=== PATIENT | female | born 1985 | race Caucasian/White ===

== ENCOUNTER 2017-06-28 18:27 | Emergency (ER) | payer BC ==
[2017-06-28 18:40] VITALS: RESP 18
[2017-06-28] MEDS ORDERED: ONDANSETRON 4 MG/2 ML VIAL IVP STA (19:27)
[2017-06-28] MEDS ORDERED: SODIUM CHLORIDE 0.9% 1,000 ML IV STA (19:27)
[2017-06-28] MEDS ORDERED: DICYCLOMINE 10 MG/ML 2 ML AMP IM STA (19:27)
[2017-06-28] MEDS ORDERED: SODIUM CHLORIDE 0.9% 500 ML IV STA (19:27)
--- NOTE | 2017-06-28 19:27 | ED ---
Nausea/Vomiting/Diarrhea HPI - General Chief complaint: Nausea/Vomiting/Diarrhea Stated complaint: Vomiting Time Seen by Provider: 06/28/17 19:08 Source: patient Mode of arrival: ambulatory Limitations: no limitations - History of Present Illness Initial comments: 32-year-old female patient presents to the emergency department today for complaints of vomiting and diarrhea. Patient states that symptoms started around 0830 this morning. States that she has vomited approximately 5 times. States that she's had multiple episodes of watery diarrhea. She denies any hematemesis, hematochezia, or melena. Denies any fevers or chills. Patient states that her was sick with similar symptoms approximately 3 days ago. Patient states she has been having generalized abdominal cramping. States that she has attempted to eat crackers and drink water however she vomits almost immediately whenever she tries. She denies any recent travel or ingestion of questionable foods. Patient denies any recent rash, shortness breath, chest pain, back pain, numbness, tingling, dizziness, weakness, hematuria, dysuria, urinary urgency, urinary frequency, headache, visual changes , or any other complaints. - Related Data Home Medications Medication Instructions Recorded Confirmed metFORMIN HCL [Glucophage] 500 mg PO BID 06/28/17 06/28/17 Previous Rx's Medication Instructions Recorded Ondansetron [Zofran ODT] 4 mg PO Q8HR PRN #10 tab 06/28/17 Allergies Allergy/AdvReac Type Severity Reaction Status Date / Time No Known Allergies Allergy Verified 06/28/17 19:18 Review of Systems ROS Statement: Those systems with pertinent positive or pertinent negative responses have been documented in the HPI. ROS Other: All systems not noted in ROS Statement are negative. Past Medical History Past Medical History: No Reported History History of Any Multi-Drug Resistant Organisms: None Reported Past Surgical History: No Surgical Hx Reported Past Psychological History: No Psychological Hx Reported Smoking Status: Never smoker Past Alcohol Use History: Occasional Past Drug Use History: None Reported General Exam Limitations: no limitations General appearance: alert, in no apparent distress, other (This is a well- developed, well-nourished adult female patient in no acute distress. Vital signs upon presentation are temperature 99.0F, pulse 106, respirations 18, blood pressure 142/89, pulse ox 99% on room air.) Eye exam: Present: normal appearance, PERRL, EOMI. Absent: scleral icterus, conjunctival injection, periorbital swelling ENT exam: Present: normal exam, normal oropharynx, mucous membranes moist Respiratory exam: Present: normal lung sounds bilaterally. Absent: respiratory distress, wheezes, rales, rhonchi, stridor Cardiovascular Exam: Present: regular rate, normal rhythm, normal heart sounds. Absent: systolic murmur, diastolic murmur, rubs, gallop, clicks GI/Abdominal exam: Present: soft, normal bowel sounds. Absent: distended, tenderness, guarding, rebound, rigid Neurological exam: Present: alert, oriented X3, CN II-XII intact Psychiatric exam: Present: normal affect, normal mood Skin exam: Present: warm, dry, intact, normal color. Absent: rash Course Vital Signs 06/28/17 06/28/17 18:38 21:11 Temperature 99 F Pulse Rate 106 H 95 Respiratory 18 18 Rate Blood Pressure 142/89 121/57 O2 Sat by Pulse 99 98 Oximetry Medical Decision Making - Medical Decision Making 32-year-old female patient presents to the emergency department today with complaints of vomiting and diarrhea since 8:30 this morning. Physical examination was relatively unremarkable. Abdomen was soft and nontender. Labs reviewed and did reveal an elevated white blood cell count at 13.9, neutrophil count at 12.6. Urinalysis was negative for any infectious process however did reveal 2+ ketones. Patient was negative on her urine hCG. Patient is feeling much better after receiving IV fluids, Zofran, and IM Bentyl. I did discuss results with the patient and informed her symptoms are most likely related to a gastroenteritis. She is instructed to start with a clear liquid diet and advance as tolerated. She'll be given a prescription of Zofran for any continued symptoms. She is instructed to follow-up with her primary care physician for recheck in 1-2 days. She is instructed to return here immediately for any new, worsening, or concerning symptoms. She'll verbalize understanding and agree with this plan. - Lab Data Result diagrams: 06/28/17 20:15 06/28/17 20:15 Lab Results 06/28/17 06/28/17 06/28/17 Range/Units 20:15 20:15 21:10 WBC 13.9 H (3.8-10.6) k/uL RBC 5.37 (3.80-5.40) m/uL Hgb 14.8 (11.4-16.0) gm/dL Hct 46.9 H (34.0-46.0) % MCV 87.3 (80.0-100.0) fL MCH 27.6 (25.0-35.0) pg MCHC 31.6 (31.0-37.0) g/dL RDW 14.1 (11.5-15.5) % Plt Count 303 (150-450) k/uL Neutrophils % 90 % Lymphocytes % 5 % Monocytes % 4 % Eosinophils % 1 % Basophils % 0 % Neutrophils # 12.6 H (1.3-7.7) k/uL Lymphocytes # 0.7 L (1.0-4.8) k/uL Monocytes # 0.5 (0-1.0) k/uL Eosinophils # 0.1 (0-0.7) k/uL Basophils # 0.0 (0-0.2) k/uL Sodium 142 (137-145) mmol/L Potassium 4.0 (3.5-5.1) mmol/L Chloride 104 (98-107) mmol/L Carbon Dioxide 20 L (22-30) mmol/L Anion Gap 18 mmol/L BUN 14 (7-17) mg/dL Creatinine 0.70 (0.52-1.04) mg/dL Est GFR (CKD-EPI)AfAm >90 (>60 ml/min/1.73 sqM) Est GFR (CKD-EPI)NonAf >90 (>60 ml/min/1.73 sqM) Glucose 100 H (74-99) mg/dL Calcium 9.7 (8.4-10.2) mg/dL Total Bilirubin 0.9 (0.2-1.3) mg/dL AST 16 (14-36) U/L ALT 18 (9-52) U/L Alkaline Phosphatase 91 (38-126) U/L Total Protein 8.6 H (6.3-8.2) g/dL Albumin 4.8 (3.5-5.0) g/dL Amylase 50 (30-110) U/L Lipase 40 (23-300) U/L Urine Color Yellow Urine Appearance Clear (Clear) Urine pH 5.5 (5.0-8.0) Ur Specific [place] 1.028 (1.001-1.035) Urine Protein Trace H (Negative) Urine Glucose (UA) Negative (Negative) Urine Ketones 2+ H (Negative) Urine Blood Small H (Negative) Urine Nitrite Negative (Negative) Urine Bilirubin Negative (Negative) Urine Urobilinogen <2.0 (<2.0) mg/dL Ur Leukocyte Esterase Negative (Negative) Urine RBC 3 (0-5) /hpf Urine WBC 2 (0-5) /hpf Ur Squamous Epith Cells 3 (0-4) /hpf Urine Bacteria Rare H (None) /hpf Urine Mucus Many H (None) /hpf Urine HCG, Qual (Not Detectd) 06/28/17 Range/Units 21:10 WBC (3.8-10.6) k/uL RBC (3.80-5.40) m/uL Hgb (11.4-16.0) gm/dL Hct (34.0-46.0) % MCV (80.0-100.0) fL MCH (25.0-35.0) pg MCHC (31.0-37.0) g/dL RDW (11.5-15.5) % Plt Count (150-450) k/uL Neutrophils % % Lymphocytes % % Monocytes % % Eosinophils % % Basophils % % Neutrophils # (1.3-7.7) k/uL Lymphocytes # (1.0-4.8) k/uL Monocytes # (0-1.0) k/uL Eosinophils # (0-0.7) k/uL Basophils # (0-0.2) k/uL Sodium (137-145) mmol/L Potassium (3.5-5.1) mmol/L Chloride (98-107) mmol/L Carbon Dioxide (22-30) mmol/L Anion Gap mmol/L BUN (7-17) mg/dL Creatinine (0.52-1.04) mg/dL Est GFR (CKD-EPI)AfAm (>60 ml/min/1.73 sqM) Est GFR (CKD-EPI)NonAf (>60 ml/min/1.73 sqM) Glucose (74-99) mg/dL Calcium (8.4-10.2) mg/dL Total Bilirubin (0.2-1.3) mg/dL AST (14-36) U/L ALT (9-52) U/L Alkaline Phosphatase (38-126) U/L Total Protein (6.3-8.2) g/dL Albumin (3.5-5.0) g/dL Amylase (30-110) U/L Lipase (23-300) U/L Urine Color Urine Appearance (Clear) Urine pH (5.0-8.0) Ur Specific [place] (1.001-1.035) Urine Protein (Negative) Urine Glucose (UA) (Negative) Urine Ketones (Negative) Urine Blood (Negative) Urine Nitrite (Negative) Urine Bilirubin (Negative) Urine Urobilinogen (<2.0) mg/dL Ur Leukocyte Esterase (Negative) Urine RBC (0-5) /hpf Urine WBC (0-5) /hpf Ur Squamous Epith Cells (0-4) /hpf Urine Bacteria (None) /hpf Urine Mucus (None) /hpf Urine HCG, Qual Not Detected (Not Detectd) Disposition Clinical Impression: Gastroenteritis Disposition: HOME SELF-CARE Condition: Good Instructions: Gastroenteritis (ED) Additional Instructions: Start with clear liquid diet and advance as tolerated. Follow-up with your primary care physician for recheck in 1-2 days. Return here immediately for any new, worsening, or concerning symptoms. Prescriptions: Ondansetron [Zofran ODT] 4 mg PO Q8HR PRN #10 tab PRN Reason: Nausea Referrals: None,Stated [Primary Care Provider] - 1-2 days Time of Disposition: 21:51
[2017-06-28 20:34] LABS: Basophils % (A) 0 %; Eosinophils # (A) 0.1 k/uL (0-0.7); Eosinophils % (A) 1 %; HCT 46.9 % (34.0-46.0); HGB 14.8 gm/dL (11.4-16.0); Lymphocytes # (A) 0.7 k/uL (1.0-4.8); Lymphocytes % (A) 5 %; MCH 27.6 pg (25.0-35.0); MCHC 31.6 g/dL (31.0-37.0); MCV 87.3 fL (80.0-100.0); Mean Platelet Volume 7.3; Monocytes # (A) 0.5 k/uL (0-1.0); Monocytes % (A) 4 %; Neutrophils # (A) 12.6 k/uL (1.3-7.7); Neutrophils % (A) 90 %; Platelet Count 303 k/uL (150-450); RBC 5.37 m/uL (3.80-5.40); RDW 14.1 % (11.5-15.5); WBC 13.9 k/uL (3.8-10.6)
[2017-06-28 20:40] LABS: ALT 18 U/L (9-52); AST 16 U/L (14-36); Albumin 4.8 g/dL (3.5-5.0); Alkaline Phosphatase 91 U/L (38-126); Amylase 50 U/L (30-110); Anion Gap 18 mmol/L; Blood Urea Nitrogen 14 mg/dL (7-17); Calcium 9.7 mg/dL (8.4-10.2); Carbon Dioxide 20 mmol/L (22-30); Chloride 104 mmol/L (98-107); Glucose 100 mg/dL (74-99); Lipase 40 U/L (23-300); Sodium 142 mmol/L (137-145); Total Bilirubin 0.9 mg/dL (0.2-1.3); Total Protein 8.6 g/dL (6.3-8.2)
[2017-06-28 21:30] LABS: Appearance,Urine Clear (Clear); Bacteria,Urine Rare /hpf; Bilirubin,Urine Negative (Negative); Blood,Urine Small (Negative); Color,Urine Yellow; Glucose,Urine (UA) Negative (Negative); Ketones,Urine 2+ (Negative); Leukocyte Esterase,Urine Negative (Negative); Mucus,Urine Many /hpf; Nitrite,Urine Negative (Negative); PH, Urine 5.5 (5.0-8.0); Protein,Urine Trace (Negative); RBC,Urine 3 /hpf (0-5); Specific Gravity,Urine 1.028 (1.001-1.035); Squamous Epithelial Cell,Urine 3 /hpf (0-4); Urobilinogen,Urine <2.0 mg/dL (<2.0); WBC,Urine 2 /hpf (0-5)
[2017-06-28 22:25] VITALS: BP 112/58; PULSE 91
[2017-06-28 22:26] VITALS: TEMP 98.7
== END 2017-06-28 22:38 | disposition home or self-care (01) ==
LOC: EC 18:27
DX: K52.9 Noninfective gastroenteritis and colitis, unspecified (principal); Z79.84 Long term (current) use of oral hypoglycemic drugs
CPT/HCPCS: 99284; 96374; 96361 ×2; 96372; 36415; 80053; 82150; 83690; 85025; 81001; 81025; J0500; J2405

== ENCOUNTER 2022-04-25 00:23 | Inpatient (IN) | payer BC ==
[2022-04-25] MEDS ORDERED: KETOROLAC 15 MG/ML 1 ML VIAL IVP STA (00:45)
[2022-04-25] MEDS ORDERED: SODIUM CHLORIDE 0.9% 1,000 ML IV STA (00:45)
[2022-04-25] MEDS ORDERED: MORPHINE SULFATE 2 MG/ML SYRINGE IVP STA (00:45)
[2022-04-25] MEDS ORDERED: HYDROmorphone 0.5 MG/0.5 ML SYRINGE IM STA (00:48)
[2022-04-25 01:16] LABS: Basophils # (A) 0.1 k/uL (0-0.2); Basophils % (A) 1 %; Eosinophils # (A) 0.1 k/uL (0-0.7); Eosinophils % (A) 1 %; HCT 37.4 % (34.0-46.0); HGB 12.2 gm/dL (11.4-16.0); Lymphocytes # (A) 2.4 k/uL (1.0-4.8); Lymphocytes % (A) 23 %; MCH 28.9 pg (25.0-35.0); MCHC 32.7 g/dL (31.0-37.0); MCV 88.3 fL (80.0-100.0); Mean Platelet Volume 7.3; Monocytes # (A) 0.5 k/uL (0-1.0); Monocytes % (A) 5 %; Neutrophils # (A) 7.3 k/uL (1.3-7.7); Neutrophils % (A) 70 %; Platelet Count 355 k/uL (150-450); RBC 4.24 m/uL (3.80-5.40); RDW 15.3 % (11.5-15.5); WBC 10.6 k/uL (3.8-10.6)
[2022-04-25 01:36] LABS: ALT 19 U/L (4-34); AST 20 U/L (14-36); African American GFR (CKD) >90 (>60 ml/min/1.73 sqM); Albumin 4.5 g/dL (3.5-5.0); Alkaline Phosphatase 75 U/L (38-126); Anion Gap 12 mmol/L; Blood Urea Nitrogen 11 mg/dL (7-17); Calcium 9.3 mg/dL (8.4-10.2); Carbon Dioxide 20 mmol/L (22-30); Chloride 110 mmol/L (98-107); Glucose 115 mg/dL (74-99); Non-African American GFR(CKD) >90 (>60 ml/min/1.73 sqM); Potassium 3.8 mmol/L (3.5-5.1); Sodium 142 mmol/L (137-145); Total Bilirubin 0.4 mg/dL (0.2-1.3); Total Protein 7.8 g/dL (6.3-8.2)
--- NOTE | 2022-04-25 01:51 | US ---
EXAMINATION TYPE: US pelvis complete transvag DATE OF EXAM: 04/25/2022 COMPARISON: NONE CLINICAL HISTORY: Pelvic pain. pelvic pain with bleeding since early March, , patient in extre me pain tonight TECHNIQUE: TA/TV. Transabdominal sonographic images of the pelvis were acquired. Transvaginal sono graphic images were medically necessary to better assess the following anatomy: everything patient had to have pain medication before TV was attempted. Date of LMP: unknown EXAM MEASUREMENTS: Uterus: 8.2 x 4.7 x 3.8 cm Endometrial Stripe: 0.9 cm Right Ovary: not seen Left Ovary: not seen 1. Uterus: Anteverted wnl 2. Endometrium: wnl 3. Right Ovary: unable to view normal ovarian tissue with and without TV approach 4. Left Ovary: unable to view normal ovarian tissue with and without TV approach 5. Bilateral Adnexa: wnl 6. Posterior cul-de-sac: soft tissue area seen within cul-de-sac that may represent clot versus othe r etiology Anterior to uterus and slightly left of midline is complex mass measuring 9.3 x 6.9 x 7.5cm, no vas cularity, cannot exclude this is a torsed ovary. Tired multiple attempt to visualize normal ovarian t issue, never obtain ovaries. IMPRESSION: There is large mass in the pelvis on the left side of uncertain origin and significance. This could b e large hemorrhagic ovarian cyst or ovarian tumor. Follow-up is recommended. Echogenicity in the cul- de-sac could be some blood clot.
--- NOTE | 2022-04-25 02:29 | ED ---
Abdominal Pain HPI - General Chief Complaint: Abdominal Pain Stated Complaint: Abdominal pain Time Seen by Provider: 04/25/22 00:34 Source: patient, family, RN notes reviewed Mode of arrival: ambulatory Limitations: no limitations - History of Present Illness Initial Comments: This is a 36-year-old female who presents to the emergency department for pelvic pain. States that at approximately 10 PM, she developed sudden onset pelvic pain, she describes this as feeling almost like a "nerve pain" or stabbing pain in the vagina. Additionally, she reports ongoing vaginal bleeding for the last 2 months with varying intensity. Denies any history of problems with ongoing vaginal bleeding or severe pain like she is currently experiencing. She has seen Dr. Talavera in the past and has her next appointment scheduled for next month. She feels nauseous due to the pain, but denies any episodes of vomiting. About a week ago, she had lower abdominal pain, however this was higher up in the abdomen and resolved after a bowel movement and Tums. States that this pain feels much different overall. Denies any fevers, chills, sore throat, cough, dyspnea, chest pain, palpitations, vomiting, diarrhea, back pain, or headaches. MD Complaint: abdominal pain - Related Data Allergies Allergy/AdvReac Type Severity Reaction Status Date / Time No Known Allergies Allergy Verified 06/28/17 19:18 Review of Systems ROS Statement: Those systems with pertinent positive or pertinent negative responses have been documented in the HPI. ROS Other: All systems not noted in ROS Statement are negative. Past Medical History Past Medical History: No Reported History History of Any Multi-Drug Resistant Organisms: None Reported Past Surgical History: No Surgical Hx Reported Past Psychological History: No Psychological Hx Reported Past Alcohol Use History: Occasional Past Drug Use History: None Reported - Past Family History Mother Family Medical History: Cancer (Breast) General Exam Limitations: no limitations General appearance: alert, in distress Head exam: Present: atraumatic, normocephalic, normal inspection Respiratory exam: Present: normal lung sounds bilaterally. Absent: respiratory distress, wheezes, rales, rhonchi, stridor Cardiovascular Exam: Present: regular rate, normal rhythm, normal heart sounds. Absent: systolic murmur, diastolic murmur, rubs, gallop, clicks GI/Abdominal exam: Present: soft, tenderness (There is tenderness to palpation over the whole pelvic area, worse in the suprapubic region.). Absent: distended Neurological exam: Present: alert, oriented X3, CN II-XII intact Psychiatric exam: Present: normal affect, normal mood Skin exam: Present: warm, dry, intact, normal color. Absent: rash Course Vital Signs 04/25/22 04/25/22 00:26 01:40 Temperature 97.5 F L Pulse Rate 111 H 95 Respiratory 20 16 Rate Blood Pressure 142/82 142/86 O2 Sat by Pulse 100 97 Oximetry Medical Decision Making - Medical Decision Making This is a 36-year-old female who presents to the emergency department for abdominal pain. Was pt. sent in by a medical professional or institution? @ -No Did you speak to anyone other than the patient for history? @ -Her Did you review nursing and triage notes? @ -Yes, and I agree, it is accurate with regards to the patient's symptoms. Were old charts reviewed? @ -No Differential Diagnosis? @ -Differential Abdominal Pain Women: Appendicitis, Cholecystitis, diverticulosis, ischemic bowel, pancreatitis, hepatitis, UTI, gastroenteritis, AAA, incarcerated hernia, bowel obstruction, constipation, inflammatory bowel, hepatitis, peptic ulcer disease, splenic i nfarction, perforated viscus, vulvitis, ovarian torsion, PID, kidney stone, placenta abruption, this is not meant to be an all-inclusive list What testing was considered but not performed? (CT, X-rays, U/S, labs)? Why? @ -None What meds were considered but not given? Why? @ -None Did you discuss the management of the patient with other professionals? @ -Yes, I first spoke with Dr. Max due to the patient stating that she had been a patient of Dr. Talavera. Dr. Max notes that the patient had not been seen in the office in over 5 years and was no longer considered their p atient. 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 Bey was then consulted, who came to evaluate the patient. Plans made for emergent surgical intervention. Did you reconcile home meds? @ -No Was smoking cessation discussed for >3mins.? @ -No Was critical care preformed (if so, how long)? @ -No Were there social determinants of health that impacted care today? How? (Homelessness, low income, unemployed, alcoholism, drug addiction, transportation, low edu. Level, literacy, decrease access to med. care, fci, rehab)? @ -No Was there de-escalation of care discussed even if they declined? (Discuss DNR or withdrawal of care, Hospice)? @ -No What co-morbidities impacted this encounter? (DM, HTN, Smoking, COPD, CAD, Cancer, CVA, Hep., AIDS, mental health diagnosis, sleep apnea, morbid obesity)? @ -Morbid obesity Was patient admitted / discharged? @ -Admitted. Lab work obtained and found to be nonactionable. Transvaginal ultrasound reveals a concerning left pelvic cystic structure measuring over 9 cm. Ovarian tissue was not visualized and this mass was concerning for a hemorrhagic cyst, ovarian tumor, or ovarian torsion. Patient's test did return as positive, however hCG was just above 300. Dr. Bey, [employer], made plans for emergent surgical intervention for left ovarian mass. Admission orders completed and the patient was taken to the OR. Undiagnosed new problem with uncertain prognosis? @ -Ovarian mass Drug Therapy requiring intensive monitoring for toxicity (Heparin, Nitro, Insulin, Cardizem)? @ -None Were any procedures done? @ -None Diagnosis/symptom? @ -Ovarian mass Acute, or Chronic, or Acute on Chronic? @ -Acute Uncomplicated (without systemic symptoms) or Complicated (systemic symptoms)? @ -Complicated Side effects of treatment? @ -Treatment not administered in the emergency department. Exacerbation, Progression, or Severe Exacerbation] @ -Not applicable Poses a threat to life or bodily function? @ -Yes This case was discussed in detail with the attending ED physician, Dr. Echols. Presentation, findings, and treatment plan discussed in detail as well. - Lab Data Result diagrams: 04/25/22 01:10 04/25/22 01:10 Lab Results 04/25/22 04/25/22 04/25/22 Range/Units 01:10 01:10 01:10 WBC 10.6 (3.8-10.6) k/uL RBC 4.24 (3.80-5.40) m/uL Hgb 12.2 (11.4-16.0) gm/dL Hct 37.4 (34.0-46.0) % MCV 88.3 (80.0-100.0) fL MCH 28.9 (25.0-35.0) pg MCHC 32.7 (31.0-37.0) g/dL RDW 15.3 (11.5-15.5) % Plt Count 355 (150-450) k/uL MPV 7.3 Neutrophils % 70 % Lymphocytes % 23 % Monocytes % 5 % Eosinophils % 1 % Basophils % 1 % Neutrophils # 7.3 (1.3-7.7) k/uL Lymphocytes # 2.4 (1.0-4.8) k/uL Monocytes # 0.5 (0-1.0) k/uL Eosinophils # 0.1 (0-0.7) k/uL Basophils # 0.1 (0-0.2) k/uL Sodium 142 (137-145) mmol/L Potassium 3.8 (3.5-5.1) mmol/L Chloride 110 H (98-107) mmol/L Carbon Dioxide 20 L (22-30) mmol/L Anion Gap 12 mmol/L BUN 11 (7-17) mg/dL Creatinine 0.63 (0.52-1.04) mg/dL Est GFR (CKD-EPI)AfAm >90 (>60 ml/min/1.73 sqM) Est GFR (CKD-EPI)NonAf >90 (>60 ml/min/1.73 sqM) Glucose 115 H (74-99) mg/dL Plasma Lactic Acid Matthew 1.3 (0.7-2.0) mmol/L Calcium 9.3 (8.4-10.2) mg/dL Total Bilirubin 0.4 (0.2-1.3) mg/dL AST 20 (14-36) U/L ALT 19 (4-34) U/L Alkaline Phosphatase 75 (38-126) U/L Total Protein 7.8 (6.3-8.2) g/dL Albumin 4.5 (3.5-5.0) g/dL HCG, Quant mIU/mL Urine Color Urine Appearance (Clear) Urine pH (5.0-8.0) Ur Specific [place] (1.001-1.035) Urine Protein (Negative) Urine Glucose (UA) (Negative) Urine Ketones (Negative) Urine Blood (Negative) Urine Nitrite (Negative) Urine Bilirubin (Negative) Urine Urobilinogen (<2.0) mg/dL Ur Leukocyte Esterase (Negative) Urine RBC (0-5) /hpf Urine WBC (0-5) /hpf Ur Squamous Epith Cells (0-4) /hpf Urine Mucus (None) /hpf Urine HCG, Qual (Not Detectd) Blood Type Blood Type Recheck Bld Type Recheck Status 04/25/22 04/25/22 04/25/22 Range/Units 01:10 02:28 02:28 WBC (3.8-10.6) k/uL RBC (3.80-5.40) m/uL Hgb (11.4-16.0) gm/dL Hct (34.0-46.0) % MCV (80.0-100.0) fL MCH (25.0-35.0) pg MCHC (31.0-37.0) g/dL RDW (11.5-15.5) % Plt Count (150-450) k/uL MPV Neutrophils % % Lymphocytes % % Monocytes % % Eosinophils % % Basophils % % Neutrophils # (1.3-7.7) k/uL Lymphocytes # (1.0-4.8) k/uL Monocytes # (0-1.0) k/uL Eosinophils # (0-0.7) k/uL Basophils # (0-0.2) k/uL Sodium (137-145) mmol/L Potassium (3.5-5.1) mmol/L Chloride (98-107) mmol/L Carbon Dioxide (22-30) mmol/L Anion Gap mmol/L BUN (7-17) mg/dL Creatinine (0.52-1.04) mg/dL Est GFR (CKD-EPI)AfAm (>60 ml/min/1.73 sqM) Est GFR (CKD-EPI)NonAf (>60 ml/min/1.73 sqM) Glucose (74-99) mg/dL Plasma Lactic Acid Matthew (0.7-2.0) mmol/L Calcium (8.4-10.2) mg/dL Total Bilirubin (0.2-1.3) mg/dL AST (14-36) U/L ALT (4-34) U/L Alkaline Phosphatase (38-126) U/L Total Protein (6.3-8.2) g/dL Albumin (3.5-5.0) g/dL HCG, Quant 347.6 mIU/mL Urine Color Yellow Urine Appearance Clear (Clear) Urine pH 5.5 (5.0-8.0) Ur Specific [place] 1.021 (1.001-1.035) Urine Protein Negative (Negative) Urine Glucose (UA) Negative (Negative) Urine Ketones Negative (Negative) Urine Blood Small H (Negative) Urine Nitrite Negative (Negative) Urine Bilirubin Negative (Negative) Urine Urobilinogen <2.0 (<2.0) mg/dL Ur Leukocyte Esterase Negative (Negative) Urine RBC <1 (0-5) /hpf Urine WBC 2 (0-5) /hpf Ur Squamous Epith Cells <1 (0-4) /hpf Urine Mucus Few H (None) /hpf Urine HCG, Qual Detected (Not Detectd) Blood Type Blood Type Recheck Bld Type Recheck Status 04/25/22 Range/Units 03:00 WBC (3.8-10.6) k/uL RBC (3.80-5.40) m/uL Hgb (11.4-16.0) gm/dL Hct (34.0-46.0) % MCV (80.0-100.0) fL MCH (25.0-35.0) pg MCHC (31.0-37.0) g/dL RDW (11.5-15.5) % Plt Count (150-450) k/uL MPV Neutrophils % % Lymphocytes % % Monocytes % % Eosinophils % % Basophils % % Neutrophils # (1.3-7.7) k/uL Lymphocytes # (1.0-4.8) k/uL Monocytes # (0-1.0) k/uL Eosinophils # (0-0.7) k/uL Basophils # (0-0.2) k/uL Sodium (137-145) mmol/L Potassium (3.5-5.1) mmol/L Chloride (98-107) mmol/L Carbon Dioxide (22-30) mmol/L Anion Gap mmol/L BUN (7-17) mg/dL Creatinine (0.52-1.04) mg/dL Est GFR (CKD-EPI)AfAm (>60 ml/min/1.73 sqM) Est GFR (CKD-EPI)NonAf (>60 ml/min/1.73 sqM) Glucose (74-99) mg/dL Plasma Lactic Acid Matthew (0.7-2.0) mmol/L Calcium (8.4-10.2) mg/dL Total Bilirubin (0.2-1.3) mg/dL AST (14-36) U/L ALT (4-34) U/L Alkaline Phosphatase (38-126) U/L Total Protein (6.3-8.2) g/dL Albumin (3.5-5.0) g/dL HCG, Quant mIU/mL Urine Color Urine Appearance (Clear) Urine pH (5.0-8.0) Ur Specific [place] (1.001-1.035) Urine Protein (Negative) Urine Glucose (UA) (Negative) Urine Ketones (Negative) Urine Blood (Negative) Urine Nitrite (Negative) Urine Bilirubin (Negative) Urine Urobilinogen (<2.0) mg/dL Ur Leukocyte Esterase (Negative) Urine RBC (0-5) /hpf Urine WBC (0-5) /hpf Ur Squamous Epith Cells (0-4) /hpf Urine Mucus (None) /hpf Urine HCG, Qual (Not Detectd) Blood Type O Positive Blood Type Recheck No Previous Record Bld Type Recheck Status [facility] ONLY - Radiology Data Radiology results: report reviewed, image reviewed Disposition Clinical Impression: Ovarian mass, left Disposition: ADMITTED IP TO THIS [facility] Referrals: None,Stated [Primary Care Provider] - 1-2 days
[2022-04-25 02:53] LABS: Appearance,Urine Clear (Clear); Bilirubin,Urine Negative (Negative); Blood,Urine Small (Negative); Color,Urine Yellow; Glucose,Urine (UA) Negative (Negative); Ketones,Urine Negative (Negative); Leukocyte Esterase,Urine Negative (Negative); Mucus,Urine Few /hpf; Nitrite,Urine Negative (Negative); PH, Urine 5.5 (5.0-8.0); Protein,Urine Negative (Negative); RBC,Urine <1 /hpf (0-5); Specific Gravity,Urine 1.021 (1.001-1.035); Squamous Epithelial Cell,Urine <1 /hpf (0-4); Urobilinogen,Urine <2.0 mg/dL (<2.0); WBC,Urine 2 /hpf (0-5)
--- NOTE | 2022-04-25 04:22 | P.HPOB ---
History of Present Illness H&P Date: 04/25/22 Chief Complaint: Acute abdominal pain This is a 36-year-old female 2 para 0110 with a last menstrual period in early February who came in with acute abdominal pain that woke her up from sleeping. It started in the midline lower abdomen and was very severe. She denied any nausea or vomiting but did feel some rectal pressure like she had to have a bowel movement. She stated she was wearing a tampon since she has been bleeding off and on since March 03. She took her tampon out and the pain did not get any better. Upon arrival to ER, she was given morphine and Dilaudid to control her pain. Pelvic ultrasound showed endometrial thickness of 0.9 cm. There was a question of clot in the cul-de-sac and a large left adnexal mass anterior and superior to the uterus measuring 9.3 x 6.9 x 7.5 cm with no vascularity. No normal ovarian tissue was seen on either ovary. 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 Patient is a past patient of Dr. Amato and did have an appointment scheduled to see her on 05/04/2022. Her last Pap was approximately 5 years ago. She denies any history of sexual transmitted diseases. She did not know she was until she came to the emergency room. She states her last intercourse was sometime in February. Obstetrical history: 110. She does have a history of a stillborn at approximately 25-1/2 weeks 14 years ago. Review of Systems Constitutional: Denies chills, Denies fever Eyes: denies blurred vision, denies pain Ears, nose, mouth and throat: Denies headache, Denies sore throat Cardiovascular: Denies chest pain, Denies shortness of breath Respiratory: Denies cough Gastrointestinal: Reports abdominal pain, Reports diarrhea, Denies nausea, Denies vomiting Genitourinary: Reports abnormal vaginal bleeding, Reports pelvic pain, Reports Menstruation: Reports menses variable, Reports period heavy, Reports period light Musculoskeletal: Denies myalgias Integumentary: Denies pruritus, Denies rash Neurological: Denies numbness, Denies weakness Psychiatric: Denies anxiety, Denies depression Endocrine: Denies fatigue, Denies weight change Past Medical History Past Medical History: No Reported History History of Any Multi-Drug Resistant Organisms: None Reported Past Surgical History: No Surgical Hx Reported Past Psychological History: No Psychological Hx Reported Smoking Status: Never smoker Past Alcohol Use History: Occasional Past Drug Use History: None Reported - Past Family History Mother Family Medical History: Cancer (Breast) Medications and Allergies Allergies Allergy/AdvReac Type Severity Reaction Status Date / Time No Known Allergies Allergy Verified 06/28/17 19:18 Exam Osteopathic Statement: *. No significant issues noted on an osteopathic structural exam other than those noted in the History and Physical/Consult. Vital Signs Temp Pulse Resp BP Pulse Ox 04/25/22 01:40 95 16 142/86 97 04/25/22 00:26 97.5 F L 111 H 20 142/82 100 Intake and Output 04/24/22 04/24/22 04/25/22 14:59 22:59 06:59 Other: Weight 117.934 kg HEENT: Within normal limits Heart: Regular rate and rhythm Lungs: Clear to auscultation bilaterally Abdomen: Soft, tender in the left lower quadrant and suprapubic. Pelvic exam: Deferred at this time until the OR due to severe pain. Extremities: Negative Homans Results Result Diagrams: 04/25/22 01:10 04/25/22 01:10 Abnormal Lab Results - Last 24 Hours (Table) 04/25/22 04/25/22 Range/Units 01:10 02:28 Chloride 110 H (98-107) mmol/L Carbon Dioxide 20 L (22-30) mmol/L Glucose 115 H (74-99) mg/dL Urine Blood Small H (Negative) Urine Mucus Few H (None) /hpf Assessment and Plan (1) Torsion of ovary and fallopian tube Current Visit: Yes Status: Acute Code(s): N83.53 - TORSION OF OVARY, OVARIAN PEDICLE AND FALLOPIAN TUBE SNOMED Code(s): 270911456 (2) Ectopic Current Visit: Yes Status: Acute Code(s): O00.90 - UNSPECIFIED ECTOPIC WITHOUT INTRAUTERINE SNOMED Code(s): 62264923 Plan: Admission for exploratory laparotomy, possible salpingectomy, possible oophorectomy. Patient and her were counseled regarding the need for surgery and the possibility of needing to remove either a tube or ovary or both. She is aware that this could lead to infertility. Risks and benefits of surgery were discussed in detail. I have discussed the risks, benefits, and alternative therapies for the above- mentioned procedure and for both sedation/anesthesia as well as necessary blood products administration, if indicated, as they pertain to this patient. The patient has indicated her understanding and acceptance of the risks and procedures discussed.
[2022-04-25] MEDS ORDERED: NALOXONE 0.4 MG/ML 1 ML VIAL IV PRN (04:35)
[2022-04-25] MEDS ORDERED: HYDROmorphone 0.5 MG/0.5 ML SYRINGE IVP PRN (04:35)
[2022-04-25] MEDS ORDERED: ONDANSETRON 4 MG/2 ML VIAL IVP PRN ×2 (04:35→07:19)
[2022-04-25] MEDS ORDERED: HYDROmorphone 1 MG/ML 1 ML SYRINGE IVP PRN (04:35)
[2022-04-25] MEDS ORDERED: SUCCINYLCHOLINE CHLORIDE 200 MG/10 ML VIAL IV ONE (04:49)
[2022-04-25] MEDS ORDERED: GLYCOPYRROLATE 0.2 MG/ML 2 ML VIAL ONE (04:49)
[2022-04-25] MEDS ORDERED: MIDAZOLAM 2 MG/2 ML VIAL ONE (04:49)
[2022-04-25] MEDS ORDERED: ROCURONIUM 10 MG/ML (5 ML VIAL) IV ONE (04:49)
[2022-04-25] MEDS ORDERED: PROPOFOL 10 MG/ML 20 ML VIAL IV ONE (04:49)
[2022-04-25] MEDS ORDERED: KETOROLAC 15 MG/ML 1 ML VIAL ONE (04:49)
[2022-04-25] MEDS ORDERED: fentaNYL (PF) 50 MCG/ML 2 ML AMP ONE (04:49)
[2022-04-25] MEDS ORDERED: SODIUM CHLORIDE 0.9% 100 ML BAG ONE (04:49)
[2022-04-25] MEDS ORDERED: ceFAZolin 1,000 MG VIAL ONE (04:49)
[2022-04-25] MEDS ORDERED: NEOSTIGMINE 1 MG/ML 10 ML VIAL ONE (04:49)
[2022-04-25] MEDS ORDERED: LIDOCAINE 2% INJ 20 MG/ML (2 ML VIAL) ONE (04:49)
[2022-04-25] MEDS ORDERED: LACTATED RINGERS 1,000 ML IV ONE ×2 (04:56→05:43)
[2022-04-25] MEDS ORDERED: ceFAZolin 1,000 MG VIAL IVPB ONE (05:11)
[2022-04-25] MEDS ORDERED: HYDROmorphone 0.5 MG/0.5 ML SYRINGE IVP ONE ×3 (06:16→06:29)
--- NOTE | 2022-04-25 06:21 | P.OP ---
Date of Procedure: 04/25/22 Preoperative Diagnosis: Acute abdomen, possible adnexal torsion versus ectopic Postoperative Diagnosis: Ruptured left adnexal ectopic with torsion of left tube and ovary Procedure(s) Performed: Exploratory laparotomy Left salpingo-oophorectomy Anesthesia: SATYA Surgeon: Lupe Bey Thermometer Tester #1: Freda Max Estimated Blood Loss (ml): 150 Pathology: other (Left tube and ovary with ectopic ) Condition: stable Disposition: floor Indications for Procedure: This is a 36-year-old female 2 para 0110 who presented to the emergency room with acute abdomen for sudden onset of suprapubic abdominal pain. She had been bleeding off and on since March 03. Her last menstrual period that was normal was early February. Her last intercourse was sometime in February. Beta hCG level was 347. Ultrasound showed a complex left adnexal mass measuring up to 9 cm with no flow. She was consented for exploratory laparotomy with possible appendectomy and possible oophorectomy. I have discussed the risks, benefits, and alternative therapies for the above- mentioned procedure and for both sedation/anesthesia as well as necessary blood products administration, if indicated, as they pertain to this patient. The patient has indicated her understanding and acceptance of the risks and procedures discussed. Operative Findings: There was a hemoperitoneum on entry into the peritoneal cavity of approximately 100 mL of dark blood clots. The left tube and ovary were torsed and adherent to the left pelvic sidewall slightly. There was a rent in the 2 that appeared to be where the ectopic regnancy had ruptured. The right ovary appeared normal. The majority of the right tube appeared normal however the end of the tube did appear slightly adherent to bowel and appears slightly clubbed. Description of Procedure: The patient is taken to the operating room where she is placed in the dorsal supine position. Gen. anesthesia is given. Westfall catheter inserted. She is prepped and draped in the normal sterile fashion. A Pfannenstiel skin incision was made with the scalpel. The incision was carried down to the underlying layer of fascia second knife. The fascia was nicked in the midline and then extended laterally bilaterally with Roth scissors. Next the superior aspect of the fascial incision was grasped with 2 Savi clamps and then dissected off the underlying rectus muscle in the midline with Roth scissors. The same procedure is carried out in the lower edge of the fascia. Next the peritoneum was identified and then entered bluntly with a hemostat. Blood clots are noted in the abdominal cavity and suctioned out. Peritoneal layer is then extended superiorly and in fairly with Metzenbaum scissors with good visualization of underlying structures. Next a Harman retractor was placed with a bladder blade. The remainder the clots are removed with a hand and suctioning. A 3 yard moist laparotomy sponges used for retraction of the bowels. The left adnexal area is very dilated and appears to be ruptured and torsed. This is gently peeled off the pelvic sidewall with blunt dissection. Once it was freed, the infundibulopelvic ligament is clamped with a Zoë clamp. The uterine ovarian ligament and tube were also clamped with a Zoë clamp. This is cut with Roth scissors and then sutured with 0 Vicryl suture in Zoë transfixion stitches. The remainder of the pedicles also clamped with a Zoë clamp, cut with Roth scissors, and then sutured with 0 Vicryl suture in Zoë transfixion stitch. The entire left tube and ovary are then removed from the field with ectopic . Several interrupted stitches are placed for hemostasis. Copious irrigation is carried out with warm saline. Good hemostasis is noted. The right ovary appears normal and the right tube appears normal in caliber however does appear adherent and slightly clubbed at the end of the tube. Next the 3 are left moist laparotomy sponge is removed. All sponge counts are correct. Next the peritoneum layer is closed with 0 Vicryl suture in a running fashion. The muscle layer is reapproximated with 0 Vicryl suture in interrupted fashion. The fascia is then closed with 0 PDS suture with 2 sutures meeting in the midline and the knots buried on either side and in the midline. Next the subcutaneous tissue was closed with 2-0 Vicryl suture in a running fashion. The skin is then closed with lana. All sponge and needle counts are correct. The patient is then taken to recovery room in stable condition.
[2022-04-25] MEDS ORDERED: METOCLOPRAMIDE 5 MG/ML 2 ML VIAL IVP PRN (07:19)
[2022-04-25] MEDS ORDERED: diphenhydrAMINE 50 MG CAP PO PRN (07:19)
[2022-04-25] MEDS ORDERED: ZOLPIDEM 5 MG TAB PO PRN (07:19)
[2022-04-25] MEDS ORDERED: diphenhydrAMINE 50 MG/ML 1 ML VIAL IVP PRN (07:19)
[2022-04-25] MEDS: HYDROmorphone PCA 10 MG/50 ML BAG IV PRN ×2 (08:03→21:40)
[2022-04-25 09:18] VITALS: RESP 16
[2022-04-25] MEDS: KETOROLAC 15 MG/ML 1 ML VIAL IVP PRN ×2 (12:48→18:45)
[2022-04-25] MEDS: LACTATED RINGERS 1,000 ML IV SCH ×2 (16:00→21:30)
[2022-04-25] MEDS: SENNOSIDES-DOCUSATE SODIUM 1 EACH TAB PO SCH ×2 (17:35→20:04)
[2022-04-25 22:44] LABS: Basophils % (A) 0 %; Eosinophils # (A) 0.1 k/uL (0-0.7); Eosinophils % (A) 1 %; HCT 28.6 % (34.0-46.0); Lymphocytes # (A) 1.7 k/uL (1.0-4.8); Lymphocytes % (A) 12 %; MCV 90.5 fL (80.0-100.0); Mean Platelet Volume 7.6; Monocytes # (A) 0.7 k/uL (0-1.0); Monocytes % (A) 5 %; Neutrophils # (A) 11.6 k/uL (1.3-7.7); Neutrophils % (A) 81 %; Platelet Count 354 k/uL (150-450); RBC 3.16 m/uL (3.80-5.40); RDW 15.2 % (11.5-15.5); WBC 14.2 k/uL (3.8-10.6)
[2022-04-25 23:09] LABS: HGB 8.9 gm/dL (11.4-16.0)
[2022-04-25] MEDS: ACETAMINOPHEN TAB 500 MG TAB PO PRN (23:35)
[2022-04-26] MEDS: KETOROLAC 15 MG/ML 1 ML VIAL IVP PRN ×2 (03:27→11:33)
[2022-04-26] MEDS: SIMETHICONE 80 MG CHEWABLE PO PRN ×2 (03:28→09:15)
[2022-04-26] MEDS: LACTATED RINGERS 1,000 ML IV SCH ×4 (03:34→13:41)
[2022-04-26] MEDS: SENNOSIDES-DOCUSATE SODIUM 1 EACH TAB PO SCH ×2 (07:39→20:37)
[2022-04-26] MEDS: ACETAMINOPHEN TAB 500 MG TAB PO PRN ×3 (07:42→20:35)
[2022-04-26 08:55] LABS: Basophils # (A) 0.1 k/uL (0-0.2); Basophils % (A) 1 %; Eosinophils # (A) 0.3 k/uL (0-0.7); Eosinophils % (A) 2 %; HGB 8.7 gm/dL (11.4-16.0); Lymphocytes # (A) 2.2 k/uL (1.0-4.8); Lymphocytes % (A) 17 %; MCH 28.5 pg (25.0-35.0); MCHC 32.2 g/dL (31.0-37.0); MCV 88.7 fL (80.0-100.0); Mean Platelet Volume 7.8; Monocytes # (A) 0.8 k/uL (0-1.0); Monocytes % (A) 6 %; Neutrophils # (A) 9.2 k/uL (1.3-7.7); Neutrophils % (A) 73 %; Platelet Count 314 k/uL (150-450); RBC 3.05 m/uL (3.80-5.40); WBC 12.6 k/uL (3.8-10.6)
--- NOTE | 2022-04-26 08:56 | P.PN ---
Subjective Progress Note Date: 04/26/22 Principal diagnosis: Status post exploratory laparotomy with left salpingo-oophorectomy due to adnexal torsion and left ectopic postoperative day #1 Patient is complaining of some gas pains today. She has ambulated and passed some flatus. She has urinated. She did have one temperature to 101 last night but after fluid bolus and Westfall removal, this has resolved. Objective - Vital Signs Vital signs: Vital Signs Temp 97.5 F L 04/26/22 08:00 Pulse 98 04/26/22 08:00 Resp 16 04/26/22 08:00 BP 135/85 04/26/22 08:00 Pulse Ox 97 04/26/22 01:25 FiO2 Intake & Output 04/25/22 04/26/22 04/26/22 18:59 06:59 18:59 Intake Total 1875 Output Total 300 1350 Balance 1575 -1350 Weight 117.934 kg Intake: Intake, IV Titration 1875 Amount Lactated Ringers 1,000 ml 1875 @ 125 mls/hr IV .Q8H VANESSA Rx#:[id number] Output: Urine 300 1350 - Constitutional General appearance: Present: no acute distress - Gastrointestinal Gastrointestinal Comment(s): Incision is clean dry and intact with lana in place General gastrointestinal: Present: normal bowel sounds - Labs CBC & Chem 7: 04/25/22 21:28 04/25/22 01:10 Labs: Abnormal Lab Results - Last 24 Hours (Table) 04/25/22 Range/Units 21:28 WBC 14.2 H (3.8-10.6) k/uL RBC 3.16 L (3.80-5.40) m/uL Hgb 8.9 L D (11.4-16.0) gm/dL Hct 28.6 L (34.0-46.0) % Neutrophils # 11.6 H (1.3-7.7) k/uL Assessment and Plan Assessment: Status post exploratory laparotomy with left salpingo-oophorectomy postoperative day #1 (1) Torsion of ovary and fallopian tube Current Visit: Yes Status: Acute Code(s): N83.53 - TORSION OF OVARY, OVARIAN PEDICLE AND FALLOPIAN TUBE SNOMED Code(s): 556512056 (2) Ectopic Current Visit: Yes Status: Acute Code(s): O00.90 - UNSPECIFIED ECTOPIC WITHOUT INTRAUTERINE SNOMED Code(s): 89982399 Plan: Will advance diet as tolerated. Patient is encouraged to ambulate. May shower. Will switch to oral pain medications today.
[2022-04-26] MEDS: IBUPROFEN 600 MG TAB PO PRN (17:25)
[2022-04-27] MEDS: IBUPROFEN 600 MG TAB PO PRN (00:17)
[2022-04-27] MEDS: ACETAMINOPHEN TAB 500 MG TAB PO PRN (08:31)
[2022-04-27 08:41] VITALS: BP 119/81; PULSE 92; TEMP 98.2
--- NOTE | 2022-04-27 08:41 | P.DS ---
Providers Date of admission: 04/25/22 06:05 Expected date of discharge: 04/27/22 Attending physician: Lupe Bey Primary care physician: Stated None - Discharge Diagnosis(es) (1) Torsion of ovary and fallopian tube Current Visit: Yes Status: Acute (2) Ectopic Current Visit: Yes Status: Acute Hospital Course: This is a 36-year-old female 2 para 0110 who presented to the emergency room with acute abdomen and what appeared to be an ovarian torsion. She was later found to be with a beta hCG level of 347. She underwent an exploratory laparotomy with left salpingo-oophorectomy due to ruptured ectopic with left adnexal torsion on 04/25/2022. Postoperatively she has done well. She is urinating without difficulty. She is passing flatus and looser stools. Pain is been fairly well-controlled with ibuprofen and Tylenol. Vital signs are stable. Abdomen is soft with positive bowel sounds 4. Incision is clean dry and intact with lana in place. Extremities show negative Homans. Impression is status post exploratory laparotomy with left salpingo-oophorectomy postoperative day #2. Plan is to discharge home today. Laan will be removed and Steri-Strips placed prior to discharge. She is advised to follow up with me in the office in approximately one week for a postoperative check. She is advised no heavy lifting, no driving. She is advised to call the office if she has any further questions or concerns prior to her appointment time. She will be given a prescription for ibuprofen. Procedures: Exploratory laparotomy with left salpingo-oophorectomy on 04/25/2022 Patient Condition at Discharge: Stable Plan - Discharge Summary Discharge Rx Participant: Yes New Discharge Prescriptions: New Ibuprofen [Motrin] 600 mg PO Q6HR PRN #60 tab PRN Reason: Mild Discomfort Acetaminophen Tab [Tylenol] 1,000 mg PO Q6HR PRN tab PRN Reason: Fever And/ Or Pain Discharge Medication List Acetaminophen Tab [Tylenol] 1,000 mg PO Q6HR PRN tab 04/27/22 [Rx] Ibuprofen [Motrin] 600 mg PO Q6HR PRN #60 tab 04/27/22 [Rx] Follow up Appointment(s)/Referral(s): None,Stated [Primary Care Provider] - 1-2 days Bey,Lupe, DO [Doctor of Osteopathic Medicine] - 1 Week Activity/Diet/Wound Care/Special Instructions: Diet as tolerated. Activity as tolerated. No heavy lifting, pushing, pulling. No intercourse. May shower, but no tub baths for 1 week. No driving for approximately 1 week. Discharge Disposition: HOME SELF-CARE
[2022-04-27] MEDS: SENNOSIDES-DOCUSATE SODIUM 1 EACH TAB PO SCH (09:07)
== END 2022-04-27 09:30 | disposition home or self-care (01) | DRG 817 ==
LOC: EC 00:23 → UNDOADMIN 04:36 → EC 04:36 → 4FBP 04:36
PROVIDERS: ADMIT Obstetrics & Gynecology; ATTEND Obstetrics & Gynecology
PROC: 0UT60ZZ Resection of Left Fallopian Tube, Open Approach (ICD-10-PCS; 2022-04-25)
PROC: 0UT10ZZ Resection of Left Ovary, Open Approach (ICD-10-PCS; principal; 2022-04-25 04:13)
DX: O00.102 Left tubal pregnancy without intrauterine pregnancy (principal); K66.1 Hemoperitoneum; N83.53 Torsion of ovary, ovarian pedicle and fallopian tube; Z87.59 Personal history of other complications of pregnancy, childbirth and the puerperium; Z3A.00 Weeks of gestation of pregnancy not specified
CPT/HCPCS: 36415; 76830; 76856; 80053; 81001; 81025; 83605; 84702; 85025; 86900; 86901; 88305; 96361; 96372; 96374; 96375; 99285